=== PATIENT | female | born 1970 | race Caucasian/White ===

== ENCOUNTER 2017-10-22 21:11 | Emergency (ER) | payer MEDICAID ==
[~2017-10-22 21:11] MED LIST: ADV500/50 INH; ALBU8.5H12 IH; ALPR-429 PO; AMIT-104 PO; AMO875 PO; AUG875 PO; BEN100 PO; BO30S PR; CEF300 PO; CEP500 PO; CIP500 PO; CIPR-214 PO; CLI150 PO; CYC10 PO; DIAZ-1 PO; DIP5L PO; DOXY-179 PO; DOXY150T6 PO; FAM20 PO; FLUT16SP20 NS; FURO-43 PO; GOLYTE PO; GUALA600 PO; HYD2 PO; HYDEL PO; HYDR-319 PO; HYDR-385 PO; HYDR-4308 PO; HYDR2TAB42 PO; HYDR2TAB74 PO; IBU600 PO; IBU800 PO; LEV500 PO; LEVAQUIN; LEVO750T25 PO; LOR5 PO; LOR5/325 PO; META800T18 PO; METH4TAB57 PO; MORP-1 PO; NAP250 PO; OMEP-153 PO; OMEP40CA45 PO; ONDA4TAB PO; OXYB10TA21 PO; OXYC-827 PO; OXYGEN INH; PAN40 PO; PANT40TA65 PO; PAR20 PO; PARO-243 PO; PER PO; PHEN120S16 PO; PHENA200 PO; POLY17PO25 PO; POTA2.5T7 PO; PRE10 PO; PRE20 PO; PRO25 PO; PROAIRPT IH; PROC5L PO; PROM-110 PO; PROM25S PR; ROBC PO; SIMV-44 PO; STEROID INHALER; TAMS0.4C76 PO; TIZA4CAP3 PO; TRA50 PO; TRAZ-163 PO; TRAZ50 PO; [UNRECOGNIZED DRUG - CODE] PO; [UNRECOGNIZED DRUG - REMARK]
--- NOTE | 2017-10-22 21:19 | ER Report ---
History and Physical Time Seen By MD: 21:19 HPI/ROS CHIEF COMPLAINT: Migraine headache HISTORY OF PRESENT ILLNESS: 47-year-old female with a migraine headache for 7 days. She is a long history of migraines. They have become in frequency. She began taking a beta art for suppression. Patient's on chronic pain management. She's tried her OxyContin and oxycodone without relief. Patient notes severe nausea but no vomiting. Patient denies fever or stiff neck. Patient notes photophobia and nausea but no vomiting. Patient states his headache is typical for her. REVIEW OF SYSTEMS: Respiratory: No cough, no dyspnea. Cardiovascular: No chest pain, no palpitations. Gastrointestinal: No vomiting, no abdominal pain. Musculoskeletal: No back pain. Allergies: Coded Allergies: Sulfa (Sulfonamide Antibiotics) (Verified Allergy, Severe, ANAPHYLAXIS, ) cephalexin (Verified Allergy, Severe, ANAPHYLAXIS, 10/22/17) ciprofloxacin (Verified Allergy, Severe, SWELLING IN MOUTH, ITCHING, PIN AND NEEDLES IN MOUTH, 10/22/17) sulfamethoxazole (Verified Allergy, Severe, SWELLING OF LIPS AND GUMS, ) trimethoprim (Verified Allergy, Severe, SWELLING OF LIPS AND GUMS, 10/22/17 ) meperidine (Verified Allergy, Intermediate, RASH, ITCHING, 10/22/17) aspirin (Verified Allergy, Mild, 10/22/17) naproxen (Verified Allergy, Mild, 10/22/17) Home Meds Reported Medications Paroxetine Hcl (PAXIL) 20 Mg Tablet, 37.5 MG PO QDAY, TAB 10/22/17 Pantoprazole Sodium (PANTOPRAZOLE SODIUM) 40 Mg Tablet.dr, 40 MG PO QDAY, TAB.SR 02/16/17 Oxycodone Hcl (OXYCONTIN) 15 Mg Tab.er.12h, 20 MG PO QDAY 02/16/17 Hydrocodone Bit/Acetaminophen (NORCO 7.5-325 TABLET) 1 Each Tablet, 1 EACH PO 08/27/16 Polyethylene Glycol 3350 (MIRALAX) Unknown Strength Powd.pack, 17 GM PO QODAY, PKT 08/15/16 Discontinued Reported Medications Trazodone Hcl (TRAZODONE HCL) 100 Mg Tablet, 100 MG PO QHS, TAB 06/29/16 Paroxetine Hcl (PAXIL) 20 Mg Tablet, 75 MG PO QDAY, TAB 11/15/15 Reviewed Nurses Notes: Yes Old Medical Records Reviewed: Yes Hx Smoking: Yes (1/2 PPD 5 YEARS) Smoking Status: Current: Every Day Smoker Exposure to Second Hand Smoke?: Yes Hx Substance Use Disorder: No Hx Alcohol Use: No Constitutional Vital Sign - Last 24 Hours 10/22/17 10/22/17 10/22/17 10/22/17 21:18 21:26 21:30 21:41 Temp 97.8 Pulse 54 54 53 Resp 18 B/P (MAP) 143/91 116/83 (94) Pulse Ox 97 93 94 O2 Delivery Room Air 10/22/17 10/22/17 10/22/17 10/22/17 21:56 22:00 22:11 22:26 Pulse 54 53 50 B/P (MAP) 131/77 (95) Pulse Ox 93 97 97 10/22/17 10/22/17 10/22/17 10/22/17 22:30 22:41 22:56 23:00 Pulse 52 63 B/P (MAP) 107/67 (80) 100/57 (71) Pulse Ox 96 89 Physical Exam Vital signs stable, afebrile, pulse ox normal General Appearance: The patient is alert, has no immediate need for airway protection and no signs of toxicity. Moderate distress Eyes: Pupils equal and round no pallor or injection. + Photophobia ENT, Mouth: Mucous membranes are moist. TMs normal Respiratory: There are no retractions, lungs are clear to auscultation. Cardiovascular: Regular rate and rhythm. Gastrointestinal: Abdomen is soft and non tender, no masses, bowel sounds normal. Neurological: Alert and oriented 3, cranial nerves II through XII intact motor 5/5 air analyst, sensory intact to light touch 4, cerebellum grossly intact Skin: Warm and dry, no rashes. Musculoskeletal: Neck is supple non tender. No lymphadenopathy, no meningismus , no bruits Extremities are nontender, nonswollen and have full range of motion. DIFFERENTIAL DIAGNOSIS: After history and physical exam differential diagnosis was considered for headache including but not limited to subarachnoid hemorrhage , migraine headache, tension headache and infectious causes such as meningitis, pharyngitis and sinusitis. Medical Decision Making Data Points Result Diagram: 10/22/17215810/22/172158 Laboratory Hematology Test 10/22/17 21:59 Red Blood Count 4.59 M/uL (4.17-5.56) Mean Corpuscular Volume 93.4 fL (80.0-96.0) Mean Corpuscular Hemoglobin 31.7 pg (26.0-33.0) Mean Corpuscular Hemoglobin Concent 33.9 g/dL (32.0-36.0) Red Cell Distribution Width 13.6 % (11.5-14.5) Mean Platelet Volume 7.6 fL (7.2-11.1) Neutrophils (%) (Auto) 64.6 % (39.4-72.5) Lymphocytes (%) (Auto) 27.9 % (17.6-49.6) Monocytes (%) (Auto) 5.5 % (4.1-12.4) Eosinophils (%) (Auto) 0.9 % (0.4-6.7) Basophils (%) (Auto) 1.1 % (0.3-1.4) Nucleated RBC Relative Count (auto) 0.0 /100WBC Neutrophils # (Auto) 8.8 K/uL (2.0-7.4) Lymphocytes # (Auto) 3.8 K/uL (1.3-3.6) Monocytes # (Auto) 0.8 K/uL (0.3-1.0) Eosinophils # (Auto) 0.1 K/uL (0.0-0.5) Basophils # (Auto) 0.1 K/uL (0.0-0.1) Nucleated RBC Absolute Count (auto) 0.00 K/uL Erythrocyte Sedimentation Rate 18 mm/HOUR (0-20) Sodium Level 139 mmol/L (137-145) Potassium Level 3.7 mmol/L (3.5-5.0) Chloride Level 102 mmol/L (98-107) Carbon Dioxide Level 28 mmol/L (22-31) Blood Urea Nitrogen 13 mg/dl (7-18) Creatinine 0.90 mg/dl (0.52-1.04) Glomerular Filtration Rate Calc > 60.0 Random Glucose 77 mg/dl (75-110) Calcium Level 8.7 mg/dl (8.4-10.2) Total Bilirubin 0.4 mg/dl (0.2-1.3) Aspartate Amino Transf (AST/SGOT) 15 U/L (0-35) Alanine Aminotransferase (ALT/SGPT) 29 U/L (0-56) Alkaline Phosphatase 95 U/L (0-126) Total Protein 6.6 gm/dl (6.3-8.2) Albumin 3.5 g/dl (3.5-5.0) Chemistry Test 10/22/17 21:59 White Blood Count 13.7 k/uL (4.5-11.0) Red Blood Count 4.59 M/uL (4.17-5.56) Hemoglobin 14.5 g/dL (12.0-16.0) Hematocrit 42.9 % (34.0-47.0) Mean Corpuscular Volume 93.4 fL (80.0-96.0) Mean Corpuscular Hemoglobin 31.7 pg (26.0-33.0) Mean Corpuscular Hemoglobin Concent 33.9 g/dL (32.0-36.0) Red Cell Distribution Width 13.6 % (11.5-14.5) Platelet Count 231 K/uL (150-450) Mean Platelet Volume 7.6 fL (7.2-11.1) Neutrophils (%) (Auto) 64.6 % (39.4-72.5) Lymphocytes (%) (Auto) 27.9 % (17.6-49.6) Monocytes (%) (Auto) 5.5 % (4.1-12.4) Eosinophils (%) (Auto) 0.9 % (0.4-6.7) Basophils (%) (Auto) 1.1 % (0.3-1.4) Nucleated RBC Relative Count (auto) 0.0 /100WBC Neutrophils # (Auto) 8.8 K/uL (2.0-7.4) Lymphocytes # (Auto) 3.8 K/uL (1.3-3.6) Monocytes # (Auto) 0.8 K/uL (0.3-1.0) Eosinophils # (Auto) 0.1 K/uL (0.0-0.5) Basophils # (Auto) 0.1 K/uL (0.0-0.1) Nucleated RBC Absolute Count (auto) 0.00 K/uL Erythrocyte Sedimentation Rate 18 mm/HOUR (0-20) Glomerular Filtration Rate Calc > 60.0 Calcium Level 8.7 mg/dl (8.4-10.2) Total Bilirubin 0.4 mg/dl (0.2-1.3) Aspartate Amino Transf (AST/SGOT) 15 U/L (0-35) Alanine Aminotransferase (ALT/SGPT) 29 U/L (0-56) Alkaline Phosphatase 95 U/L (0-126) Total Protein 6.6 gm/dl (6.3-8.2) Albumin 3.5 g/dl (3.5-5.0) ED Course/Re-evaluation Clinical Indication for ER IV: Hydration, IV Access ED Course Patient was admitted to an examination room. H&P was done. The differential diagnoses was considered. On clinical examination. Patient has some findings consistent with a migraine headache. She has a nonfocal neurologic examination. She's treated with IV fluid hydration and a non-opiate cocktail of medications. On reevaluation one hour. She's feeling completely better with no headache. She'll be discharged home. 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 Decision to Disposition Date: Oct 22, 2017 Decision to Disposition Time: 22:58 Depart Departure Latest Vital Signs Vital Signs Date Time Temp Pulse Resp B/P (MAP) Pulse Ox O2 Delivery O2 Flow Rate FiO2 10/22/17 23:00 100/57 (71) 10/22/17 22:56 63 89 10/22/17 21:18 97.8 18 Room Air Impression: Primary Impression: Migraine headache Condition: Improved Disposition: HOME OR SELF-CARE Referrals: MARY LIZAMA DO (PCP) Patient Instructions: Migraine Headache (ED) Additional Instructions: Follow-up with your primary care if unimproved in 3-5 days Problem Qualifiers Primary Impression: Migraine headache Migraine type: chronic without aura Status migrainosus presence: with status migrainosus Intractability: intractable Qualified Codes: G43.711 - Chronic migraine without aura, intractable, with status migrainosus FABY JOY DO Oct 22, 2017 21:19
[2017-10-22] MEDS ORDERED: PARO-243 PO (21:25)
[2017-10-22] MEDS ORDERED: NS(*) 0.9% 1000 ML BAG 1,000 ML IV ONE (21:31)
[2017-10-22] MEDS ORDERED: diphenhydrAMINE 50 MG/ML VIAL IVP ONE (21:35)
[2017-10-22] MEDS ORDERED: ONDANSETRON 4 MG/2 ML VIAL IVP ONE (21:35)
[2017-10-22] MEDS ORDERED: KETOROLAC 30 MG/ML VIAL IVP ONE (21:35)
[2017-10-22] MEDS ORDERED: METOCLOPRAMIDE 10 MG/2 ML SDV IVP ONE (21:35)
[2017-10-22] MEDS ORDERED: DEXAMETHASONE SOD PHOS 10MG/ML IVP ONE (21:35)
[2017-10-22 22:04] LABS: PLATELET COUNT, AUTOMATED 231 K/uL (150-450)
[2017-10-22 23:00] VITALS: BP 100/57
== END 2017-10-22 23:11 | disposition home or self-care (01) ==
LOC: ER 21:37
DX: G43.711 Chronic migraine without aura, intractable, with status migrainosus (principal); F17.210 Nicotine dependence, cigarettes, uncomplicated
CPT/HCPCS: 85025; 85651; 96361; 96374; 96375; 99283; J1100; J1200; J1885; J2405; J2765; J7030; 82040; 82247; 82310; 82374; 82435; 82565; 82947; 84075; 84132; 84155; 84295; 84450; 84460; 84520

== ENCOUNTER 2017-12-01 20:13 | Emergency (ER) | payer MEDICAID ==
--- NOTE | 2017-12-01 20:31 | ER Report ---
History and Physical Time Seen By MD: 20:31 Hx. of Stated Complaint: PT REPORTING ABDOMINAL PAIN FOR A WEEK. HPI/ROS CHIEF COMPLAINT: Abdominal pain HISTORY OF PRESENT ILLNESS: Patient is a 47-year-old female who presents to the emergency department with complaint of abdominal pain that is progressively getting worse over the past week. Patient states that the pain initially began in the right flank area radiating around to the front but now has become more generalized and is worse with movement. Patient does have a history of kidney stones in the past but states that the pain felt different than her prior kidney stones. She is nauseous and having some vomiting she denies diarrhea. She reports fevers to 100 at home. Her appetite is decreased secondary to the pain as well as the nausea. Patient has had her gallbladder removed her appendix removed and her uterus removed. REVIEW OF SYSTEMS: Constitutional: Fevers, no chills Eyes: No discharge. ENT: No sore throat. Cardiovascular: No chest pain, no palpitations. Respiratory: No cough, no shortness of breath. Gastrointestinal: Periumbilical abdominal pain, nausea, vomiting, no diarrhea Genitourinary: No hematuria. Musculoskeletal: No back pain. Skin: No rashes. Neurological: No headache. Allergies: Coded Allergies: Sulfa (Sulfonamide Antibiotics) (Verified Allergy, Severe, ANAPHYLAXIS, ) cephalexin (Verified Allergy, Severe, ANAPHYLAXIS, 10/22/17) ciprofloxacin (Verified Allergy, Severe, SWELLING IN MOUTH, ITCHING, PIN AND NEEDLES IN MOUTH, 10/22/17) sulfamethoxazole (Verified Allergy, Severe, SWELLING OF LIPS AND GUMS, ) trimethoprim (Verified Allergy, Severe, SWELLING OF LIPS AND GUMS, 10/22/17 ) meperidine (Verified Allergy, Intermediate, RASH, ITCHING, 10/22/17) aspirin (Verified Allergy, Mild, 10/22/17) naproxen (Verified Allergy, Mild, 10/22/17) dexamethasone (Verified Allergy, Unknown, 12/01/17) Home Meds Active Scripts Ondansetron (ZOFRAN ODT) 4 Mg Tab.rapdis, 4 MG PO Q8H Y for NAUSEA, #20 TAB.JIMMIE 0 Refills Prov:JUANA MORROW MD 12/01/17 Dicyclomine Hcl (DICYCLOMINE HCL) 20 Mg Tablet, 20 MG PO QID for abdominal cramping, #30 TAB Prov:JUANA MORROW MD 12/01/17 Reported Medications Lubiprostone (AMITIZA) 8 Mcg Capsule 12/01/17 Paroxetine Hcl (PAXIL) 20 Mg Tablet, 75 MG PO QDAY, TAB 12/01/17 Paroxetine Hcl (PAXIL) 20 Mg Tablet, 37.5 MG PO QDAY, TAB 10/22/17 Pantoprazole Sodium (PANTOPRAZOLE SODIUM) 40 Mg Tablet.dr, 40 MG PO QDAY, TAB.SR 02/16/17 Oxycodone Hcl (OXYCONTIN) 15 Mg Tab.er.12h, 20 MG PO QDAY 02/16/17 Hydrocodone Bit/Acetaminophen (NORCO 7.5-325 TABLET) 1 Each Tablet, 1 EACH PO 08/27/16 Polyethylene Glycol 3350 (MIRALAX) Unknown Strength Powd.pack, 17 GM PO QODAY, PKT 08/15/16 Past Medical/Surgical History Past medical history significant for constipation, depression, kidney stones Hx Smoking: Yes (1/2 PPD 5 YEARS) Smoking Status: Current: Every Day Smoker Exposure to Second Hand Smoke?: Yes Hx Substance Use Disorder: No Hx Alcohol Use: No Constitutional Vital Sign - Last 24 Hours 12/01/17 12/01/17 12/01/17 12/01/17 20:24 20:25 20:43 20:53 Temp 99.0 Pulse 55 57 Resp 16 B/P (MAP) 151/89 (109) 151/89 121/79 (93) Pulse Ox 95 98 O2 Delivery Room Air 12/01/17 12/01/17 12/01/17 12/01/17 20:58 21:00 21:13 21:28 Pulse 60 63 B/P (MAP) 119/93 (102) Pulse Ox 94 96 91 12/01/17 12/01/17 12/01/17 12/01/17 21:30 21:35 21:41 22:06 Pulse 52 B/P (MAP) 123/70 (87) 125/85 (98) Pulse Ox 89 O2 Flow Rate 1.0 12/01/17 12/01/17 12/01/17 12/01/17 22:20 22:30 22:43 23:00 Pulse 51 49 B/P (MAP) 125/75 (92) 107/64 (78) Pulse Ox 99 12/01/17 23:18 Pulse 52 Resp 16 B/P (MAP) 108/69 (82) Pulse Ox 93 O2 Delivery Room Air Physical Exam General/Constitutional: Patient is awake, alert, appears uncomfortable but nontoxic. Head: Normocephalic and atraumatic. Eyes: Conjunctival clear, Pupils are equal and reactive to light. Extraocular muscles are intact and symmetrical. Sclera are clear and anicteric. Ears:External canals are clear. Tympanic membranes are clear with normal landmarks and light reflex. Nares: No rhinorrhea or bleeding. Turbinates are pink and moist. Oropharyngeal: Mucous membranes are moist. There is no pharyngeal erythema or exudate. There are no palatal petechiae. Uvula is midline and symmetrical. Neck: Supple, no adenopathy. Cardiovascular: Heart is regular rate and rhythm without audible murmurs, rubs or gallops. Pulmonary: Lungs are clear to auscultation bilaterally. There are no wheezes, rales, or rhonchi. Chest rise is symmetrical Abdomen: Epigastric abdominal pain with voluntary guarding, no obvious rebound tenderness. Extremities: No gross deformities, No peripheral cyanosis. Able to move all 4 extremities. Neuro: Alert and oriented X3, Skin: No rashes, skin is warm dry and well perfused. Medical Decision Making Data Points Result Diagram: 12/01/17203312/01/172033 Laboratory Hematology Test 12/01/17 20:34 Red Blood Count 4.99 M/uL (4.17-5.56) Mean Corpuscular Volume 92.4 fL (80.0-96.0) Mean Corpuscular Hemoglobin 32.7 pg (26.0-33.0) Mean Corpuscular Hemoglobin Concent 35.4 g/dL (32.0-36.0) Red Cell Distribution Width 13.6 % (11.5-14.5) Mean Platelet Volume 8.2 fL (7.2-11.1) Neutrophils (%) (Auto) 53.0 % (39.4-72.5) Lymphocytes (%) (Auto) 39.3 % (17.6-49.6) Monocytes (%) (Auto) 5.3 % (4.1-12.4) Eosinophils (%) (Auto) 1.3 % (0.4-6.7) Basophils (%) (Auto) 1.1 % (0.3-1.4) Nucleated RBC Relative Count (auto) 0.0 /100WBC Neutrophils # (Auto) 5.6 K/uL (2.0-7.4) Lymphocytes # (Auto) 4.1 K/uL (1.3-3.6) Monocytes # (Auto) 0.6 K/uL (0.3-1.0) Eosinophils # (Auto) 0.1 K/uL (0.0-0.5) Basophils # (Auto) 0.1 K/uL (0.0-0.1) Nucleated RBC Absolute Count (auto) 0.00 K/uL Urine Color Yellow Urine Clarity Slightly-cloudy Urine pH 7.0 pH (4.8-9.5) Urine Specific Bogart 1.019 Urine Protein Negative mg/dL (NEGATIVE) Urine Glucose (UA) Negative mg/dL (NEGATIVE) Urine Ketones Negative mg/dL (NEGATIVE) Urine Blood Negative (NEGATIVE) Urine Nitrite Negative (NEGATIVE) Urine Bilirubin Negative (NEGATIVE) Urine Urobilinogen 2.0 mg/dL (0.2-1.9) Urine Leukocyte Esterase Negative (NEGATIVE) Urine RBC None /HPF (0-2/HPF) Urine WBC 2 /HPF (0-5/HPF) Urine Squamous Epithelial Cells Many /LPF (</=FEW) Urine Bacteria Few /HPF (NONE-FEW) Urine Hyaline Casts Few /LPF (NONE-FEW) Urine Mucus None /HPF (NONE-FEW) Sodium Level 139 mmol/L (137-145) Potassium Level 3.9 mmol/L (3.5-5.0) Chloride Level 100 mmol/L (98-107) Carbon Dioxide Level 27 mmol/L (22-31) Blood Urea Nitrogen 7 mg/dl (7-18) Creatinine 0.80 mg/dl (0.52-1.04) Glomerular Filtration Rate Calc > 60.0 Random Glucose 89 mg/dl (75-110) Calcium Level 9.0 mg/dl (8.4-10.2) Total Bilirubin 0.3 mg/dl (0.2-1.3) Aspartate Amino Transf (AST/SGOT) 17 U/L (0-35) Alanine Aminotransferase (ALT/SGPT) 26 U/L (0-56) Alkaline Phosphatase 110 U/L (0-126) Total Protein 7.6 gm/dl (6.3-8.2) Albumin 4.0 g/dl (3.5-5.0) Lipase 37 U/L (23-300) Human Chorionic Gonadotropin, Qual Negative (NEGATIVE) Helicobacter pylori IgG Antibody Negative (NEGATIVE) Chemistry Test 12/01/17 20:34 White Blood Count 10.5 k/uL (4.5-11.0) Red Blood Count 4.99 M/uL (4.17-5.56) Hemoglobin 16.3 g/dL (12.0-16.0) Hematocrit 46.1 % (34.0-47.0) Mean Corpuscular Volume 92.4 fL (80.0-96.0) Mean Corpuscular Hemoglobin 32.7 pg (26.0-33.0) Mean Corpuscular Hemoglobin Concent 35.4 g/dL (32.0-36.0) Red Cell Distribution Width 13.6 % (11.5-14.5) Platelet Count 267 K/uL (150-450) Mean Platelet Volume 8.2 fL (7.2-11.1) Neutrophils (%) (Auto) 53.0 % (39.4-72.5) Lymphocytes (%) (Auto) 39.3 % (17.6-49.6) Monocytes (%) (Auto) 5.3 % (4.1-12.4) Eosinophils (%) (Auto) 1.3 % (0.4-6.7) Basophils (%) (Auto) 1.1 % (0.3-1.4) Nucleated RBC Relative Count (auto) 0.0 /100WBC Neutrophils # (Auto) 5.6 K/uL (2.0-7.4) Lymphocytes # (Auto) 4.1 K/uL (1.3-3.6) Monocytes # (Auto) 0.6 K/uL (0.3-1.0) Eosinophils # (Auto) 0.1 K/uL (0.0-0.5) Basophils # (Auto) 0.1 K/uL (0.0-0.1) Nucleated RBC Absolute Count (auto) 0.00 K/uL Urine Color Yellow Urine Clarity Slightly-cloudy Urine pH 7.0 pH (4.8-9.5) Urine Specific Bogart 1.019 Urine Protein Negative mg/dL (NEGATIVE) Urine Glucose (UA) Negative mg/dL (NEGATIVE) Urine Ketones Negative mg/dL (NEGATIVE) Urine Blood Negative (NEGATIVE) Urine Nitrite Negative (NEGATIVE) Urine Bilirubin Negative (NEGATIVE) Urine Urobilinogen 2.0 mg/dL (0.2-1.9) Urine Leukocyte Esterase Negative (NEGATIVE) Urine RBC None /HPF (0-2/HPF) Urine WBC 2 /HPF (0-5/HPF) Urine Squamous Epithelial Cells Many /LPF (</=FEW) Urine Bacteria Few /HPF (NONE-FEW) Urine Hyaline Casts Few /LPF (NONE-FEW) Urine Mucus None /HPF (NONE-FEW) Glomerular Filtration Rate Calc > 60.0 Calcium Level 9.0 mg/dl (8.4-10.2) Total Bilirubin 0.3 mg/dl (0.2-1.3) Aspartate Amino Transf (AST/SGOT) 17 U/L (0-35) Alanine Aminotransferase (ALT/SGPT) 26 U/L (0-56) Alkaline Phosphatase 110 U/L (0-126) Total Protein 7.6 gm/dl (6.3-8.2) Albumin 4.0 g/dl (3.5-5.0) Lipase 37 U/L (23-300) Human Chorionic Gonadotropin, Qual Negative (NEGATIVE) Helicobacter pylori IgG Antibody Negative (NEGATIVE) Urinalysis Test 12/01/17 20:34 Urine Color Yellow Urine Clarity Slightly-cloudy Urine pH 7.0 pH (4.8-9.5) Urine Specific Bogart 1.019 Urine Protein Negative mg/dL (NEGATIVE) Urine Glucose (UA) Negative mg/dL (NEGATIVE) Urine Ketones Negative mg/dL (NEGATIVE) Urine Blood Negative (NEGATIVE) Urine Nitrite Negative (NEGATIVE) Urine Bilirubin Negative (NEGATIVE) Urine Urobilinogen 2.0 mg/dL (0.2-1.9) Urine Leukocyte Esterase Negative (NEGATIVE) Urine RBC None /HPF (0-2/HPF) Urine WBC 2 /HPF (0-5/HPF) Urine Squamous Epithelial Cells Many /LPF (</=FEW) Urine Bacteria Few /HPF (NONE-FEW) Urine Hyaline Casts Few /LPF (NONE-FEW) Urine Mucus None /HPF (NONE-FEW) EKG/Imaging Monitor Interpretation: Normal Sinus Rhythm Imaging FACILITY: [facility] [place] PATIENT NAME: Jacinto Santana : 1970 MR: [id number] V: [id number] EXAM DATE: ORDERING PHYSICIAN: JUANA MORROW TECHNOLOGIST: [place] [facility] [place]into [place] : 1970 Visit/Account:[id number] Date of Sevice: 12/01/2017 CT abdomen and pelvis with IV contrast Indication: Central abdominal pain and right flank pain. Comparison: 12/28/2016.. Technique: Axial CT images were obtained through the abdomen and pelvis during injection of nonionic iodinated intravenous contrast. Reformatted coronal and sagittal images were also obtained. One of the following dose optimization techniques was utilized in the performance of this exam: Automated exposure control; adjustment of the mA and/ or kV according to the patient's size; or use of an iterative reconstruction technique. Specific details can be referenced in the facility's radiology CT exam operational policy. Contrast: 75 ml of Isovue-370 IV contrast. Findings: Lower lung larios: Limited views lower lung field are unremarkable. Liver: There is focal area of mild increased attenuation in the gallbladder fossa region left lobe liver which is unchanged most likely secondary to focal fatty sparing liver shows no other focal abnormality. Biliary: Status post cholecystectomy. The biliary system is unremarkable postcholecystectomy. Pancreas: Normal appearance. Spleen: Normal appearance. Adrenal glands: Unremarkable. Kidneys / retroperitoneum: No evidence of nephrolithiasis or hydronephrosis. No focal abnormality. Bowel / peritoneum / mesenteries: Visualized gastrointestinal tract is within normal is. Status post appendectomy. No free air, free fluid, fluid collections or areas of inflammation. Tiny umbilical hernia containing fat. Lymph node assessment: No pathologic adenopathy identified. Pelvic structures: Status post hysterectomy. The remaining pelvic structures visualized within normal limits. Vessels: No significant atherosclerotic calcifications seen throughout a nonaneurysmal abdominal aorta and branches. Musculoskeletal / Body wall: No acute or aggressive osseous abnormality. Degenerative changes spine. Postsurgical change the lower lumbar spine without sequelae. Neural stimulating leads are in place in the spinal canal. IMPRESSION: 1. No acute intra-abdominal abnormality 2. Other stable chronic findings as above. Report Dictated By: Cristian Ortiz at 12/01/2017 10:11 PM Report E-Signed By: Cristian Ortiz at 12/01/2017 10:18 PM WSN:[id number] ED Course/Re-evaluation ED Course 12/01/2017 9:17:34 pm patient with abdominal pain. We will do abdominal workup including CBC CMP lipase EKG we will also obtain a CT scan of the abdomen and pelvis with IV contrast. We will give a fluid bolus along with antiemetic medicine IV as well as fentanyl IV for pain Re-evaluation 12/01/2017 10:39:06 pm patient still having discomfort despite fentanyl followed by So. She did receive some IV fluids nausea somewhat improved. CT scan blood work are all unremarkable. Looking at our treatment plan apparently the patient does have a history of narcotic seeking behavior, I did look up the [place] prescription and patient was recently given on November 26 45; 20 mg strength OxyContin. On November 17 she was prescribed 30 tablets of 5 mg Ambien, on the same date she was given 60 tablets of 10 mg hydrocodone tablets; on November 15 she was given 12 tablets of 20 mg OxyContin; and on November 13 she was given 16 tablets of 10 mg hydrocodone. These are all from the same provider. Believe patient most likely has opioid-induced hyperalgesia; this time I will give the patient 5 mg of IV Haldol. We will discharge the patient on Bentyl and Zofran and have her follow-up with her primary care provider. 12/01/2017 11:04:20 pm patient feeling improved after 5 mg of IV Haldol. We will discharge home with prescription for Bentyl and Zofran. Decision to Disposition Date: Dec 01, 2017 Decision to Disposition Time: 23:04 Depart Departure Latest Vital Signs Vital Signs Date Time Temp Pulse Resp B/P (MAP) Pulse Ox O2 Delivery O2 Flow Rate FiO2 12/01/17 23:18 52 16 108/69 (82) 93 Room Air 12/01/17 21:41 1.0 12/01/17 20:25 99.0 Impression: Primary Impression: Generalized abdominal pain Condition: Improved Disposition: HOME OR SELF-CARE Referrals: MARY LIZAMA DO (PCP) 2 Days if symptoms persist New Scripts Ondansetron (ZOFRAN ODT) 4 Mg Tab.rapdis 4 MG PO Q8H Y for NAUSEA, #20 TAB.JIMMIE 0 Refills Prov: JUANA MORROW MD 12/01/17 Dicyclomine Hcl (DICYCLOMINE HCL) 20 Mg Tablet 20 MG PO QID for abdominal cramping, #30 TAB Prov: JUANA MORROW MD 12/01/17 Patient Instructions: Abdominal Pain (ED) JUANA MORROW MD Dec 01, 2017 20:31
[2017-12-01] MEDS ORDERED: PARO-243 PO (20:32)
[2017-12-01] MEDS ORDERED: LUBI8CAP (20:32)
[2017-12-01] MEDS ORDERED: NS(*) 0.9% 1000 ML BAG 1,000 ML IV ONE (20:38)
[2017-12-01] MEDS ORDERED: ONDANSETRON 4 MG/2 ML VIAL IVP ONE (20:40)
[2017-12-01] MEDS ORDERED: fentaNYL CITR 100 MCG/2 ML AMP IVP ONE (20:40)
[2017-12-01 20:50] LABS: PLATELET COUNT, AUTOMATED 267 K/uL (150-450)
[2017-12-01] MEDS ORDERED: IOPAMIDOL 76% 75 ML INFUS BTL 75 ML ONE (20:50)
[2017-12-01] MEDS ORDERED: HYDROmorphone* 1 MG/ML 1 MG/ML ML IVP ONE (21:10)
[2017-12-01] MEDS ORDERED: HALOPERIDOL LACT 5 MG/ML VIAL IM ONE (22:20)
--- NOTE | 2017-12-01 22:21 | RADIOLOGY IMAGING REPORT ---
FACILITY: [facility] - [place] PATIENT NAME: Jacinto Santana : 1970 MR: [id number] V: [id number] EXAM DATE: ORDERING PHYSICIAN: JUANA MORROW TECHNOLOGIST: Location: [facility] - [place] Patient: Jacinto Santana : 1970 Visit/Account:[id number] Date of Sevice: 12/01/2017 CT abdomen and pelvis with IV contrast Indication: Central abdominal pain and right flank pain. Comparison: 12/28/2016.. Technique: Axial CT images were obtained through the abdomen and pelvis during injection of nonioni c iodinated intravenous contrast. Reformatted coronal and sagittal images were also obtained. One of the following dose optimization techniques was utilized in the performance of this exam: Autom ated exposure control; adjustment of the mA and/or kV according to the patient's size; or use of an i terative reconstruction technique. Specific details can be referenced in the facility's radiology C T exam operational policy. Contrast: 75 ml of Isovue-370 IV contrast. Findings: Lower lung larios: Limited views lower lung field are unremarkable. Liver: There is focal area of mild increased attenuation in the gallbladder fossa region left lobe li manolo which is unchanged most likely secondary to focal fatty sparing liver shows no other focal abnorm ality. Biliary: Status post cholecystectomy. The biliary system is unremarkable postcholecystectomy. Pancreas: Normal appearance. Spleen: Normal appearance. Adrenal glands: Unremarkable. Kidneys / retroperitoneum: No evidence of nephrolithiasis or hydronephrosis. No focal abnormality. Bowel / peritoneum / mesenteries: Visualized gastrointestinal tract is within normal is. Status post appendectomy. No free air, free fluid, fluid collections or areas of inflammation. Tiny umbilical hernia containing fat. Lymph node assessment: No pathologic adenopathy identified. Pelvic structures: Status post hysterectomy. The remaining pelvic structures visualized within nor mal limits. Vessels: No significant atherosclerotic calcifications seen throughout a nonaneurysmal abdominal aort a and branches. Musculoskeletal / Body wall: No acute or aggressive osseous abnormality. Degenerative changes spine. Postsurgical change the lower lumbar spine without sequelae. Neural stimulating leads are in place in the spinal canal. IMPRESSION: 1. No acute intra-abdominal abnormality 2. Other stable chronic findings as above. Report Dictated By: Cristian Ortiz at 12/01/2017 10:11 PM Report E-Signed By: Cristian Ortiz at 12/01/2017 10:18 PM WSN:[id number]
[2017-12-01] MEDS ORDERED: DICY20TA70 PO (22:44)
[2017-12-01] MEDS ORDERED: ONDA4TAB PO (22:44)
[2017-12-01] MEDS ORDERED: DICYCLOMINE HCL 10 MG CAP PO ONE (23:05)
[2017-12-01] MEDS ORDERED: ONDANSETRON 4 MG ODT TH SL ONE (23:05)
[2017-12-01 23:18] VITALS: BP 108/69
--- NOTE | 2017-12-02 01:35 | EKG ---
FACILITY: [facility] - [place] PATIENT NAME: DELMY CARSON : [id number] MR: [id number] V: [id number] EXAM DATE: ORDERING PHYSICIAN: JUANA MORROW TECHNOLOGIST: MARTIN Test Reason : AB PAIN Blood Pressure : / mmHG Vent. Rate : 057 BPM Atrial Rate : 057 BPM P-R Int : 144 ms QRS Dur : 082 ms QT Int : 450 ms P-R-T Axes : 025 047 037 degrees QTc Int : 438 ms Sinus bradycardia Possible left atrial enlargement Decreased R wave progression anterior leads Nonspecific T wave findings anterior leads No previous ECGs available Confirmed by JACOBO MORIN ([id number]) on 12/02/2017 5:48:52 AM Referred By: Confirmed By:JACOBO MORIN
== END 2017-12-01 23:16 | disposition home or self-care (01) ==
LOC: ER 20:32
DX: R10.84 Generalized abdominal pain (principal); R00.1 Bradycardia, unspecified
CPT/HCPCS: 74177; 81001; 83690; 84703; 85025; 86677; 87088; 93005; 96361; 96372; 96374; 96375; 99284; J1170; J1630; J2405; J3010; J7030; Q9967; S0119; 82040; 82247; 82310; 82374; 82435; 82565; 82947; 84075; 84132; 84155; 84295; 84450; 84460; 84520

== ENCOUNTER 2018-03-01 12:35 | Emergency (ER) | payer MEDICAID ==
[~2018-03-01 12:35] MED LIST changes: +DICY20TA70 PO; +LUBI8CAP
--- NOTE | 2018-03-01 12:42 | ER Report ---
History and Physical Time Seen By MD: 12:41 HPI/ROS CHIEF COMPLAINT: right flank pain HISTORY OF PRESENT ILLNESS: Patient is a 48-year-old female who presents to the emergency department with complaint of sudden onset of severe right flank pain with radiation to the groin similar to her prior episodes of kidney stone. She' s had multiple episodes of emesis prior to coming to the emergency department. Her current pain level is severe. She states that she thinks she passed a small stone on Thursday which she did not seek medical evaluation for. She apparently called the office of Dr. Gauthier who was not in the office and she was instructed by staff to come to the emergency department if she was having severe pain. Patient denies any fevers or chills she denies any dysuria. She denies any chest pain or shortness of breath. The patient does have a pain treatment plan with the emergency department. The electronic medical record was reviewed for this patient. She was seen here in November by myself for abdominal pain without obvious source. She did receive 5 mg of IV Haldol for opiate-induced hypalgesia which did seem to control her symptoms were quite well. The [place] pharmacy index was searched. The patient did receive 120 tablets 7.5 hydrocodone on February 25 60 tablets of 30 mg oxycodone on February 11 and 30 tablets of 1 mg strength Lunesta on February 25 REVIEW OF SYSTEMS: Constitutional: No fever, no chills. Eyes: No discharge. ENT: No sore throat. Cardiovascular: No chest pain, no palpitations. Respiratory: No cough, no shortness of breath. Gastrointestinal: Right flank pain, nausea with vomiting. No diarrhea Genitourinary: No hematuria. No dysuria no vaginal discharge Musculoskeletal: No back pain. Skin: No rashes. Neurological: No headache. Allergies: Coded Allergies: Sulfa (Sulfonamide Antibiotics) (Verified Allergy, Severe, ANAPHYLAXIS, ) cephalexin (Verified Allergy, Severe, ANAPHYLAXIS, 10/22/17) ciprofloxacin (Verified Allergy, Severe, SWELLING IN MOUTH, ITCHING, PIN AND NEEDLES IN MOUTH, 10/22/17) sulfamethoxazole (Verified Allergy, Severe, SWELLING OF LIPS AND GUMS, ) trimethoprim (Verified Allergy, Severe, SWELLING OF LIPS AND GUMS, 10/22/17 ) meperidine (Verified Allergy, Intermediate, RASH, ITCHING, 10/22/17) aspirin (Verified Allergy, Mild, 10/22/17) naproxen (Verified Allergy, Mild, 10/22/17) dexamethasone (Verified Allergy, Unknown, 12/01/17) Home Meds Active Scripts Ondansetron (ZOFRAN ODT) 4 Mg Tab.rapdis, 4 MG PO Q8H Y for NAUSEA, #20 TAB.JIMMIE 0 Refills Prov:JUANA MORROW MD 12/01/17 Reported Medications Lubiprostone (AMITIZA) 8 Mcg Capsule 12/01/17 Paroxetine Hcl (PAXIL) 20 Mg Tablet, 75 MG PO QDAY, TAB 12/01/17 Pantoprazole Sodium (PANTOPRAZOLE SODIUM) 40 Mg Tablet.dr, 40 MG PO QDAY, TAB.SR 02/16/17 Oxycodone Hcl (OXYCONTIN) 15 Mg Tab.er.12h, 20 MG PO QDAY 02/16/17 Hydrocodone Bit/Acetaminophen (NORCO 7.5-325 TABLET) 1 Each Tablet, 1 EACH PO 08/27/16 Polyethylene Glycol 3350 (MIRALAX) Unknown Strength Powd.pack, 17 GM PO QODAY, PKT 08/15/16 Discontinued Reported Medications Paroxetine Hcl (PAXIL) 20 Mg Tablet, 37.5 MG PO QDAY, TAB 10/22/17 Discontinued Scripts Dicyclomine Hcl (DICYCLOMINE HCL) 20 Mg Tablet, 20 MG PO QID for abdominal cramping, #30 TAB Prov:JUANA MORROW MD 12/01/17 Hx Smoking: Yes (1/2 PPD 5 YEARS) Smoking Status: Current: Every Day Smoker Exposure to Second Hand Smoke?: Yes Hx Substance Use Disorder: No Hx Alcohol Use: No Constitutional Vital Sign - Last 24 Hours 03/01/18 13:23 Temp 98.1 Pulse 59 Resp 18 B/P (MAP) 139/94 Pulse Ox 97 O2 Delivery Room Air Physical Exam General Appearance: [The patient is alert, has no immediate need for airway protection and no signs of toxicity.] [ ] [Eyes:] [Pupils equal and round no pallor or injection.] [ENT, Mouth:] [Mucous membranes are moist.] Respiratory: [There are no retractions, lungs are clear to auscultation.] Cardiovascular: [Regular rate and rhythm.] [ ] Gastrointestinal: [Abdomen is soft and non tender, no masses, bowel sounds normal.] [Neurological:] [ ] [Skin:] [Warm and dry, no rashes.] [Musculoskeletal:] [Neck is supple non tender.] [Extremities are nontender, nonswollen and have full range of motion.] [ ] [DIFFERENTIAL DIAGNOSIS: After history and physical exam differential diagnosis was considered for] [ ] Medical Decision Making Data Points Result Diagram: 03/01/18 1347 03/01/18 1347 Laboratory Hematology Test 03/01/18 13:36 03/01/18 13:47 Urine Color Yellow Urine Clarity Clear Urine pH 5.0 pH (4.8-9.5) Urine Specific [place] 1.020 Urine Protein Negative mg/dL (NEGATIVE) Urine Glucose (UA) Negative mg/dL (NEGATIVE) Urine Ketones Negative mg/dL (NEGATIVE) Urine Blood Small (NEGATIVE) Urine Nitrite Negative (NEGATIVE) Urine Bilirubin Negative (NEGATIVE) Urine Urobilinogen 2.0 mg/dL (0.2-1.9) Urine Leukocyte Esterase Negative (NEGATIVE) Urine RBC 2 /HPF (0-2/HPF) Urine WBC 1 /HPF (0-5/HPF) Urine Squamous Epithelial Cells Many /LPF (</=FEW) Urine Bacteria Negative /HPF (NONE-FEW) Urine Mucus Few /HPF (NONE-FEW) Red Blood Count 4.82 M/uL (4.17-5.56) Mean Corpuscular Volume 92.1 fL (80.0-96.0) Mean Corpuscular Hemoglobin 32.1 pg (26.0-33.0) Mean Corpuscular Hemoglobin Concent 34.9 g/dL (32.0-36.0) Red Cell Distribution Width 13.5 % (11.5-14.5) Mean Platelet Volume 8.2 fL (7.2-11.1) Neutrophils (%) (Auto) 60.8 % (39.4-72.5) Lymphocytes (%) (Auto) 31.8 % (17.6-49.6) Monocytes (%) (Auto) 5.3 % (4.1-12.4) Eosinophils (%) (Auto) 1.1 % (0.4-6.7) Basophils (%) (Auto) 1.0 % (0.3-1.4) Nucleated RBC Relative Count (auto) 0.0 /100WBC Neutrophils # (Auto) 7.0 K/uL (2.0-7.4) Lymphocytes # (Auto) 3.7 K/uL (1.3-3.6) Monocytes # (Auto) 0.6 K/uL (0.3-1.0) Eosinophils # (Auto) 0.1 K/uL (0.0-0.5) Basophils # (Auto) 0.1 K/uL (0.0-0.1) Nucleated RBC Absolute Count (auto) 0.00 K/uL Sodium Level 141 mmol/L (137-145) Potassium Level 3.8 mmol/L (3.5-5.0) Chloride Level 104 mmol/L (98-107) Carbon Dioxide Level 30 mmol/L (22-31) Blood Urea Nitrogen 10 mg/dl (7-18) Creatinine 0.80 mg/dl (0.52-1.04) Glomerular Filtration Rate Calc > 60.0 Random Glucose 79 mg/dl (75-110) Calcium Level 8.9 mg/dl (8.4-10.2) Total Bilirubin 0.4 mg/dl (0.2-1.3) Aspartate Amino Transf (AST/SGOT) 20 U/L (0-35) Alanine Aminotransferase (ALT/SGPT) 19 U/L (0-56) Alkaline Phosphatase 102 U/L (0-126) Total Protein 7.1 g/dl (6.3-8.2) Albumin 3.8 g/dl (3.5-5.0) Lipase 37 U/L (23-300) Chemistry Test 03/01/18 13:36 03/01/18 13:47 Urine Color Yellow Urine Clarity Clear Urine pH 5.0 pH (4.8-9.5) Urine Specific [place] 1.020 Urine Protein Negative mg/dL (NEGATIVE) Urine Glucose (UA) Negative mg/dL (NEGATIVE) Urine Ketones Negative mg/dL (NEGATIVE) Urine Blood Small (NEGATIVE) Urine Nitrite Negative (NEGATIVE) Urine Bilirubin Negative (NEGATIVE) Urine Urobilinogen 2.0 mg/dL (0.2-1.9) Urine Leukocyte Esterase Negative (NEGATIVE) Urine RBC 2 /HPF (0-2/HPF) Urine WBC 1 /HPF (0-5/HPF) Urine Squamous Epithelial Cells Many /LPF (</=FEW) Urine Bacteria Negative /HPF (NONE-FEW) Urine Mucus Few /HPF (NONE-FEW) White Blood Count 11.5 k/uL (4.5-11.0) Red Blood Count 4.82 M/uL (4.17-5.56) Hemoglobin 15.5 g/dL (12.0-16.0) Hematocrit 44.4 % (34.0-47.0) Mean Corpuscular Volume 92.1 fL (80.0-96.0) Mean Corpuscular Hemoglobin 32.1 pg (26.0-33.0) Mean Corpuscular Hemoglobin Concent 34.9 g/dL (32.0-36.0) Red Cell Distribution Width 13.5 % (11.5-14.5) Platelet Count 245 K/uL (150-450) Mean Platelet Volume 8.2 fL (7.2-11.1) Neutrophils (%) (Auto) 60.8 % (39.4-72.5) Lymphocytes (%) (Auto) 31.8 % (17.6-49.6) Monocytes (%) (Auto) 5.3 % (4.1-12.4) Eosinophils (%) (Auto) 1.1 % (0.4-6.7) Basophils (%) (Auto) 1.0 % (0.3-1.4) Nucleated RBC Relative Count (auto) 0.0 /100WBC Neutrophils # (Auto) 7.0 K/uL (2.0-7.4) Lymphocytes # (Auto) 3.7 K/uL (1.3-3.6) Monocytes # (Auto) 0.6 K/uL (0.3-1.0) Eosinophils # (Auto) 0.1 K/uL (0.0-0.5) Basophils # (Auto) 0.1 K/uL (0.0-0.1) Nucleated RBC Absolute Count (auto) 0.00 K/uL Glomerular Filtration Rate Calc > 60.0 Calcium Level 8.9 mg/dl (8.4-10.2) Total Bilirubin 0.4 mg/dl (0.2-1.3) Aspartate Amino Transf (AST/SGOT) 20 U/L (0-35) Alanine Aminotransferase (ALT/SGPT) 19 U/L (0-56) Alkaline Phosphatase 102 U/L (0-126) Total Protein 7.1 g/dl (6.3-8.2) Albumin 3.8 g/dl (3.5-5.0) Lipase 37 U/L (23-300) Urinalysis Test 03/01/18 13:36 Urine Color Yellow Urine Clarity Clear Urine pH 5.0 pH (4.8-9.5) Urine Specific [place] 1.020 Urine Protein Negative mg/dL (NEGATIVE) Urine Glucose (UA) Negative mg/dL (NEGATIVE) Urine Ketones Negative mg/dL (NEGATIVE) Urine Blood Small (NEGATIVE) Urine Nitrite Negative (NEGATIVE) Urine Bilirubin Negative (NEGATIVE) Urine Urobilinogen 2.0 mg/dL (0.2-1.9) Urine Leukocyte Esterase Negative (NEGATIVE) Urine RBC 2 /HPF (0-2/HPF) Urine WBC 1 /HPF (0-5/HPF) Urine Squamous Epithelial Cells Many /LPF (</=FEW) Urine Bacteria Negative /HPF (NONE-FEW) Urine Mucus Few /HPF (NONE-FEW) EKG/Imaging Imaging FACILITY: [facility] PATIENT NAME: Jacinto Santana : 1970 MR: [id number] V: [id number] EXAM DATE: ORDERING PHYSICIAN: JUANA MORROW TECHNOLOGIST: Location: [facility] Patient: Jacinto Santana : 1970 Visit/Account:[id number] Date of Sevice: 03/01/2018 EXAMINATION: CT abdomen and pelvis without IV contrast HISTORY: Right flank pain. TECHNIQUE: Axial CT images of the abdomen and pelvis were obtained without IV contrast, with coronal and sagittal 2D reconstructed images. One of the following dose optimization techniques was utilized in the performance of this exam: Automated exposure control; adjustment of the mA and/ or kV according to the patient's size; or use of an iterative reconstruction technique. Specific details can be referenced in the facility's radiology CT exam operational policy. COMPARISON: 12/01/2017. FINDINGS: Evaluation of the solid and viscus parenchymal organs is limited without the benefit of IV contrast. Kidney/ureters/bladder: The exam is negative for urinary calculi. Normal size and morphology of both kidneys. Both kidneys are negative for hydronephrosis. Normal course and caliber of the ureters. The urinary bladder is mildly distended and grossly unremarkable. Liver: Negative. Gallbladder and bile ducts: Cholecystectomy. No bile duct dilatation. Spleen: Negative. Pancreas: Negative. Adrenal glands: Negative. Bowel and peritoneum: The small bowel and colon are normal in caliber, without evidence of obstruction or any focal inflammatory process. The appendix is surgically absent. No free fluid or free intraperitoneal air. Pelvic structures: Hysterectomy. Lymph node assessment: Negative. Vessels: Negative. Musculoskeletal: No acute osseous findings. Surgical changes in the lumbar spine. Prior interbody fusion at L4-L5 and L5-S1 with posterior cherrie and pedicle screw fixation at L4-S1. Posterior laminectomy defects are present along the lower thoracic spine at T9 and T10. Spinal stimulator present with electrode at the T8 and T9 level. Body wall: Negative. Lung bases: Negative. IMPRESSION: 1. No urinary calculi or hydronephrosis. 2. No acute intra-abdominal findings by noncontrast CT imaging. 3. Prior cholecystectomy, appendectomy, hysterectomy. 4. Postsurgical changes along the thoracic and lumbar spine, with spinal stimulator device in place. Report Dictated By: Jeffrey Blake MD at 03/01/2018 2:15 PM Report E-Signed By: Jeffrey Blake MD at 03/01/2018 2:22 PM WSN:[id number] ED Course/Re-evaluation Clinical Indication for ER IV: IV Access ED Course 03/01/2018 1:44:30 pm patient with apparent renal colic. Plan will be IV pain medication with Toradol Benadryl and Reglan. We will check CBC electrolytes urinalysis perform a noncontrast CT of the abdomen and pelvis. The patient does have a treatment plan and recently received a month's supply of opiate pain medication on February 25. We will try to avoid narcotics if possible. Re-evaluation Patient's symptoms approximately 60% improved after current medications. We'll give a trial of dicyclomine. Decision to Disposition Date: Mar 01, 2018 Decision to Disposition Time: 14:38 Depart Departure Latest Vital Signs Vital Signs Date Time Temp Pulse Resp B/P (MAP) Pulse Ox O2 Delivery O2 Flow Rate FiO2 03/01/18 13:23 98.1 59 18 139/94 97 Room Air Impression: Primary Impression: Flank pain, acute Condition: Improved Disposition: HOME OR SELF-CARE Referrals: MARY LIZAMA DO (PCP) 2 Days If symptoms worsen or persist New Scripts Ondansetron (ZOFRAN ODT) 4 Mg Tab.rapdis 4 MG PO Q8H for Nausea, #15 TAB.JIMMIE 0 Refills Prov: JUANA MORROW MD 03/01/18 Dicyclomine Hcl (DICYCLOMINE HCL) 20 Mg Tablet 20 MG PO QID for cramping, #30 TAB 0 Refills Prov: JUANA MORROW MD 03/01/18 Departure Forms: ER Transition Record, Medications Reconciliation, Patient Portal Information Patient Instructions: Flank Pain (ED) JUANA MORROW MD Mar 01, 2018 12:42
[2018-03-01] MEDS ORDERED: METOCLOPRAMIDE 10 MG/2 ML SDV IVP ONE (13:40)
[2018-03-01] MEDS ORDERED: diphenhydrAMINE 50 MG/ML VIAL IVP ONE (13:40)
[2018-03-01] MEDS ORDERED: NS(*) 0.9% 500 ML BAG 500 ML IV ONE (13:40)
[2018-03-01] MEDS ORDERED: KETOROLAC 30 MG/ML VIAL IVP ONE (13:40)
[2018-03-01 13:58] LABS: PLATELET COUNT, AUTOMATED 245 K/uL (150-450)
[2018-03-01] MEDS ORDERED: DICYCLOMINE HCL 10 MG CAP PO ONE (14:15)
--- NOTE | 2018-03-01 14:25 | RADIOLOGY IMAGING REPORT ---
FACILITY: [facility] - [place] PATIENT NAME: Jacinto Santana : 1970 MR: [id number] V: [id number] EXAM DATE: ORDERING PHYSICIAN: JUANA MORROW TECHNOLOGIST: Location: [facility] [place] Patient: Jacinto Santana : 1970 Visit/Account:[id number] Date of Sevice: 03/01/2018 EXAMINATION: CT abdomen and pelvis without IV contrast HISTORY: Right flank pain. TECHNIQUE: Axial CT images of the abdomen and pelvis were obtained without IV contrast, with mcgee l and sagittal 2D reconstructed images. One of the following dose optimization techniques was utilized in the performance of this exam: Autom ated exposure control; adjustment of the mA and/or kV according to the patient's size; or use of an i terative reconstruction technique. Specific details can be referenced in the facility's radiology C T exam operational policy. COMPARISON: 12/01/2017. FINDINGS: Evaluation of the solid and viscus parenchymal organs is limited without the benefit of IV contrast. Kidney/ureters/bladder: The exam is negative for urinary calculi. Normal size and morphology of both kidneys. Both kidneys are negative for hydronephrosis. Normal course and caliber of the ureters. The urinary bladder is mildly distended and grossly unremarkable. Liver: Negative. Gallbladder and bile ducts: Cholecystectomy. No bile duct dilatation. Spleen: Negative. Pancreas: Negative. Adrenal glands: Negative. Bowel and peritoneum: The small bowel and colon are normal in caliber, without evidence of obstructi on or any focal inflammatory process. The appendix is surgically absent. No free fluid or free intrap eritoneal air. Pelvic structures: Hysterectomy. Lymph node assessment: Negative. Vessels: Negative. Musculoskeletal: No acute osseous findings. Surgical changes in the lumbar spine. Prior interbody f usion at L4-L5 and L5-S1 with posterior cherrie and pedicle screw fixation at L4-S1. Posterior laminectom y defects are present along the lower thoracic spine at T9 and T10. Spinal stimulator present with el ectrode at the T8 and T9 level. Body wall: Negative. Lung bases: Negative. IMPRESSION: 1. No urinary calculi or hydronephrosis. 2. No acute intra-abdominal findings by noncontrast CT imaging. 3. Prior cholecystectomy, appendectomy, hysterectomy. 4. Postsurgical changes along the thoracic and lumbar spine, with spinal stimulator device in place. Report Dictated By: Jeffrey Blake MD at 03/01/2018 2:15 PM Report E-Signed By: Jeffrey Blake MD at 03/01/2018 2:22 PM WSN:[id number]
[2018-03-01 14:30] VITALS: BP 116/79
[2018-03-01] MEDS ORDERED: DICY20TA70 PO (14:36)
[2018-03-01] MEDS ORDERED: ONDA4TAB PO (14:37)
== END 2018-03-01 14:59 | disposition home or self-care (01) ==
LOC: ER 13:23
DX: R10.31 Right lower quadrant pain (principal)
CPT/HCPCS: 74176; 81001; 83690; 85025; 96361; 96374; 96375; 99284; J1200; J1885; J2765; J7040; 82040; 82247; 82310; 82374; 82435; 82565; 82947; 84075; 84132; 84155; 84295; 84450; 84460; 84520

== ENCOUNTER → 2018-05-13 | Emergency (ER) | payer MEDICAID ==
[~2018-05-13] MED LIST changes: +AMOX500T10 PO; +DIPHTH/TETANUS/ACEL. PERTUSSIS IM ONLY ONE; -TRAZ-163 PO; +TRAZ100T31 PO
--- NOTE | 2018-05-13 11:45 | ER Report ---
History and Physical Time Seen By MD: 11:45 Hx. of Stated Complaint: pt states cut r hand while washing a glass 30 min ago HPI/ROS CHIEF COMPLAINT: Laceration HISTORY OF PRESENT ILLNESS: 48-year-old female patient presents to emergency room with complaint of laceration between her right fourth and fifth fingers. Patient states that she was washing a glass when it broke her hand. She states that it did Between her fourth and fifth fingers. Patient states that she did apply pressure to it. She does have some concerns that she may have some glass pieces in her hand. Patient denies having any numbness tingling. Patient is able to move her fingers any difficulties. Patient states she has not taken any medication for this. She is unsure of her last tetanus shot. Allergies: Coded Allergies: Sulfa (Sulfonamide Antibiotics) (Verified Allergy, Severe, ANAPHYLAXIS, 05/13/18) cephalexin (Verified Allergy, Severe, ANAPHYLAXIS, 05/13/18) ciprofloxacin (Verified Allergy, Severe, SWELLING IN MOUTH, ITCHING, PIN AND NEEDLES IN MOUTH, 05/13/18) sulfamethoxazole (Verified Allergy, Severe, SWELLING OF LIPS AND GUMS, 05/13/18) trimethoprim (Verified Allergy, Severe, SWELLING OF LIPS AND GUMS, 05/13/18) meperidine (Verified Allergy, Intermediate, RASH, ITCHING, 05/13/18) aspirin (Verified Allergy, Mild, 05/13/18) naproxen (Verified Allergy, Mild, 05/13/18) dexamethasone (Verified Allergy, Unknown, 05/13/18) Home Meds Active Scripts Amoxicillin 500 Mg Tab (AMOXICILLIN 500 MG TAB) 500 Mg Tablet, 1 TAB PO Q8H, #15 TAB Prov:ABBEY PADGETT 05/13/18 Dicyclomine Hcl (DICYCLOMINE HCL) 20 Mg Tablet, 20 MG PO QID for cramping, #30 TAB 0 Refills Prov:JUANA MORROW MD 03/01/18 Ondansetron (ZOFRAN ODT) 4 Mg Tab.rapdis, 4 MG PO Q8H PRN for NAUSEA, #20 TAB.JIMMIE 0 Refills Prov:JUANA MORROW MD 12/01/17 Reported Medications Lubiprostone (AMITIZA) 8 Mcg Capsule 12/01/17 Paroxetine Hcl (PAXIL) 20 Mg Tablet, 75 MG PO QDAY, TAB 4/3/18 Pantoprazole Sodium (PANTOPRAZOLE SODIUM) 40 Mg Tablet.dr, 40 MG PO QDAY, TAB.SR 02/16/17 Oxycodone Hcl (OXYCONTIN) 15 Mg Tab.er.12h, 20 MG PO QDAY 02/16/17 Hydrocodone Bit/Acetaminophen (NORCO 7.5-325 TABLET) 1 Each Tablet, 1 EACH PO 08/27/16 Polyethylene Glycol 3350 (MIRALAX) Unknown Strength Powd.pack, 17 GM PO QODAY, PKT 08/15/16 Discontinued Scripts Ondansetron (ZOFRAN ODT) 4 Mg Tab.rapdis, 4 MG PO Q8H for Nausea, #15 TAB.JIMMIE 0 Refills Prov:JUANA MORROW MD 03/01/18 Past Medical/Surgical History Patient has a past medical history of migraines, leaky valve that her heart, [place], irregular heartbeat, hyperlipidemia, sinus drainage, COPD, reflux, kidney stones, back pain, HSV, depression, PTSD, anxiety. Patient has a surgical history of a spinal fusion, hysterectomy, ureteral stents, cholecystectomy, appendectomy, cystoscopy, spinal cord simulator place. Patient has a family medical history of cancer. Reviewed Nurses Notes: Yes Hx Smoking: Yes (1/2 PPD 5 YEARS) Smoking Status: Current: Every Day Smoker Exposure to Second Hand Smoke?: Yes Hx Substance Use Disorder: No Hx Alcohol Use: No Constitutional Vital Sign - Last 24 Hours 05/13/18 05/13/18 11:37 12:45 Temp 98.4 Pulse 57 Resp 20 B/P (MAP) 119/87 120/74 (89) Pulse Ox 92 O2 Delivery Room Air Physical Exam General appearance: Alert no distress. Respiratory: Chest is non tender, lungs are clear to auscultation. Cardiac: Regular rate and rhythm. Skin: Patient does have a 2 cm laceration to the webbing between the right fourth and fifth fingers. Patient has good strength with abduction and abduction. No numbness tingling noted. No retained foreign bodies noted. DIFFERENTIAL DIAGNOSIS: After history and physical exam differential diagnosis was considered for laceration. Medical Decision Making EKG/Imaging Imaging Technique: HAND COMPLETE RIGHT HISTORY: laceration, glass pieces? Comparison studies: Right hand radiographs May 19, 2011 FINDINGS: There is no acute fracture. The alignment of the right hand is maintained. Bandaging is noted between the right fourth and fifth digits. No radiodense foreign body. IMPRESSION: 1. No radiodense foreign body. No acute osseous process. Report Dictated By: Roberto Trujillo DO at 05/13/2018 12:18 PM Report E-Signed By: Roberto Trujillo DO at 05/13/2018 12:20 PM ED Course/Re-evaluation ED Course Patient was admitted to exam room, history and physical were obtained. Initial diagnoses were considered. Examination patient does have a similar laceration be tween the fourth and fifth fingers of the right hand. There is no obvious foreign bodies noted. Patient had good strength with abduction and abduction of her fingers. X-rays done of the hand which showed no radiopaque foreign bodies. I discussed the findings with patient. We did go ahead and anesthetize, cleaned and repaired the wound is described below. We'll go ahead and discharge patient home at this time. She is to limit activity by pain. We will go ahead and put her on a few days of antibiotics to prevent any infection. She is follow-up with her primary care provider in 7-10 days to have sutures removed. I discussed this with the patient who verbalized understanding and agreement with plan. Procedure: Laceration repair. Verbal consent was obtained from the patient. The 2 cm laceration on the right hand between the fourth and fifth fingers was anesthetized in the usual fashion. The wound was scrubbed, draped and explored to its base with a gloved finger. There were no deep structures involved. No tendon injury was identified. The wound was repaired with 5 simple interrupted sutures using 5-0 Prolene material. The wound repair was simple. The procedure was performed by myself. Decision to Disposition Date: May 13, 2018 Decision to Disposition Time: 12:15 Depart Departure Latest Vital Signs Vital Signs Date Time Temp Pulse Resp B/P (MAP) Pulse Ox O2 Delivery O2 Flow Rate FiO2 05/13/18 12:45 120/74 (89) 05/13/18 11:37 98.4 57 20 92 Room Air Impression: Primary Impression: Hand laceration Condition: Improved Disposition: HOME OR SELF-CARE Referrals: MARY LIZAMA DO (PCP) New Scripts Amoxicillin 500 Mg Tab (AMOXICILLIN 500 MG TAB) 500 Mg Tablet 1 TAB PO Q8H, #15 TAB Prov: ABBEY PADGETT 05/13/18 Patient Instructions: Hand Laceration Additional Instructions: Keep wound dry for 48 hours. Follow up with your primary care provider in the next 7-10 days to have sutures removed. Monitor for signs of infection; redness, swelling, heat, discharge, increasing pain or red streaking. Take Tylenol or Ibuprofen as needed for pain. Return to the ER with any concerns. You may change dressing as needed. Problem Qualifiers Primary Impression: Hand laceration Encounter type: initial encounter Foreign body presence: without foreign body Laterality: right Qualified Codes: S61.411A - Laceration without foreign body of right hand, initial encounter ABBEY PADGETT May 13, 2018 11:45
--- NOTE | 2018-05-13 12:24 | RADIOLOGY IMAGING REPORT ---
FACILITY: [facility] - [place] PATIENT NAME: Jacinto Santana : 1970 MR: [id number] V: [id number] EXAM DATE: ORDERING PHYSICIAN: ABBEY PADGETT TECHNOLOGIST: Location: [facility] Patient: Jacinto Santana : 1970 Visit/Account:[id number] Date of Sevice: 05/13/2018 Technique: HAND COMPLETE RIGHT HISTORY: laceration, glass pieces? Comparison studies: Right hand radiographs May 19, 2011 FINDINGS: There is no acute fracture. The alignment of the right hand is maintained. Bandaging is n oted between the right fourth and fifth digits. No radiodense foreign body. IMPRESSION: 1. No radiodense foreign body. No acute osseous process. Report Dictated By: Roberto Trujillo DO at 05/13/2018 12:18 PM Report E-Signed By: Roberto Trujillo DO at 05/13/2018 12:20 PM WSN:[email or web address]
[2018-05-13 12:45] VITALS: BP 120/74
== END ==
LOC: ER 11:46
DX: S61.411A Laceration without foreign body of right hand, initial encounter (principal)
CPT/HCPCS: 90471; 90715; 99283

== ENCOUNTER → 2018-07-01 | Outpatient (CLI) | payer MEDICAID ==
[~2018-07-01] MED LIST changes: -DIPHTH/TETANUS/ACEL. PERTUSSIS IM ONLY ONE; -HYDR-4308 PO; +HYDR-654 PO
--- NOTE | 2018-07-01 11:05 | RADIOLOGY IMAGING REPORT ---
FACILITY: [facility] - [place] PATIENT NAME: Jacinto Santana : 1970 MR: [id number] V: [id number] EXAM DATE: ORDERING PHYSICIAN: MARY LIZAMA TECHNOLOGIST: Location: [facility] Patient: Jacinto Santana : 1970 Visit/Account:[id number] Date of Sevice: 07/01/2018 KNEE 3 VIEW RIGHT Indication: Swelling on the lateral side of the right knee. Pain with walking and flexing. Comparison: None available Findings: 3 views right knee were obtained. No evidence of fracture, dislocation, or acute osseous abnormality of the right knee. Minimal lateral tibial femoral compartment joint space loss. Mild lateral marginal osteophyte. Mini mal spurring of the tibial spines. Small quadriceps insertional enthesophyte. No evidence of joint effusion. There is no focal soft tissue abnormality. No evidence of radiopaque foreign body. IMPRESSION: 1.No acute osseous abnormality of the right knee. 2. Mild degenerative changes, greatest within the lateral tibiofemoral compartment. Report Dictated By: Paulino Johnson MD at 07/01/2018 10:59 AM Report E-Signed By: Paulino Johnson MD at 07/01/2018 11:01 AM WSN:[email or web address]
== END ==
LOC: RAD 10:21
PROVIDERS: ATTEND Family Medicine
DX: M25.561 Pain in right knee (principal)

== ENCOUNTER 2018-12-06 11:50 | Emergency (ER) | payer MEDICAID ==
[~2018-12-06 11:50] MED LIST changes: -LUBI8CAP; +LUBI8CAP PO
--- NOTE | 2018-12-06 12:01 | ER Report ---
History and Physical Time Seen By MD: 12:00 Hx. of Stated Complaint: PAIN IN ARMS AND NECK, CHEST PAINS/HEAVINESS, "NOT FEELING WELL", LIGHTHEADED, DIZZY, HBP, WOMACK GOING ON FOR "A WHILE" BUT WORSE SINCE YESTERDAY HPI/ROS CHIEF COMPLAINT: Chest pressure, left arm pain, discomfort under bilateral breasts. HISTORY OF PRESENT ILLNESS: 48-year-old female patient presents to emergency room with complaint of chest pressure, left arm pain, discomfort under bilateral breasts. Patient states this been going on for the past couple months but has been worse since yesterday. Patient denies any fevers or chills. She states she' s had some shortness of breath, but states that that is worse when she is feeling stressed. Patient states that she's not had any worsening of her symptoms with activity. She denies any vomiting or diarrhea but states she has been nauseated. Patient states she is not taking any medication for this. She states that she noticed that her blood pressure was elevated, 150/101 when she got up this morning. She states yesterday it was really low stating that it was 58/50-something. Patient states she is follow-up with her primary care provider today and was referred to the emergency room as her unable to check a troponin. REVIEW OF SYSTEMS: Respiratory: No cough, no dyspnea. Cardiovascular: As noted above Gastrointestinal: No vomiting, no abdominal pain. Musculoskeletal: No back pain. Allergies: Coded Allergies: Sulfa (Sulfonamide Antibiotics) (Verified Allergy, Severe, ANAPHYLAXIS, 12/06/18) cephalexin (Verified Allergy, Severe, ANAPHYLAXIS, 12/06/18) ciprofloxacin (Verified Allergy, Severe, SWELLING IN MOUTH, ITCHING, PIN AND NEEDLES IN MOUTH, 12/06/18) sulfamethoxazole (Verified Allergy, Severe, SWELLING OF LIPS AND GUMS, 12/06/18) trimethoprim (Verified Allergy, Severe, SWELLING OF LIPS AND GUMS, 12/06/18) meperidine (Verified Allergy, Intermediate, RASH, ITCHING, 12/06/18) aspirin (Verified Allergy, Mild, 12/06/18) naproxen (Verified Allergy, Mild, 12/06/18) dexamethasone (Verified Allergy, Unknown, 12/06/18) Home Meds Active Scripts Hydroxyzine Hcl (HYDROXYZINE HCL) 25 Mg Tablet, 25 MG PO Q6H PRN for ANXIETY, #30 TAB Prov:ABBEY PADGETT ARCHAEOLOGIST 12/06/18 Dicyclomine Hcl (DICYCLOMINE HCL) 20 Mg Tablet, 20 MG PO QID for cramping, #30 TAB 0 Refills Prov:JUANA MORORW MD 03/01/18 Reported Medications Black Cohosh (BLACK COHOSH) 540 Mg Capsule, 540 MG PO DAILY, CAPSULE 12/06/18 Misoprostol (MISOPROSTOL) 100 Mcg Tab, 100 MCG PO QID, TAB 12/06/18 Lubiprostone (AMITIZA) 8 Mcg Capsule, 8 MCG PO BID 12/01/17 Paroxetine Hcl (PAXIL) 20 Mg Tablet, 75 MG PO QDAY, TAB 12/01/17 Oxycodone Hcl (OXYCONTIN) 15 Mg Tab.er.12h, 20 MG PO BID 02/16/17 Hydrocodone Bit/Acetaminophen (NORCO 7.5-325 TABLET) 1 Each Tablet, 1 EACH PO QID 08/27/16 Discontinued Reported Medications Pantoprazole Sodium (PANTOPRAZOLE SODIUM) 40 Mg Tablet.dr, 40 MG PO QDAY, TAB.SR 02/16/17 Polyethylene Glycol 3350 (MIRALAX) Unknown Strength Powd.pack, 17 GM PO QODAY, PKT 08/15/16 Discontinued Scripts Amoxicillin 500 Mg Tab (AMOXICILLIN 500 MG TAB) 500 Mg Tablet, 1 TAB PO Q8H, #15 TAB Prov:ABBEY PADGETT [facility] 05/13/18 Ondansetron (ZOFRAN ODT) 4 Mg Tab.rapdis, 4 MG PO Q8H PRN for NAUSEA, #20 TAB.JIMMIE 0 Refills Prov:JUANA MORROW MD 12/01/17 Past Medical/Surgical History Patient has a past medical history of migraines, leaky valves, [place], irregular heartbeat, sinus drainage, COPD, chronic kidney stones, back pain, partial dentures, HSV, depression, PTSD, anxiety. Patient has a surgical history of removal of lymph node, spinal fusion, right knee surgery, meniscus repair, hysterectomy, ureteral stents, cholecystectomy, appendectomy, nerve stimulator placed. Patient has a family medical history of cancer. Reviewed Nurses Notes: Yes Hx Smoking: Yes (1/2 PPD 5 YEARS) Smoking Status: Current: Every Day Smoker Exposure to Second Hand Smoke?: Yes Hx Substance Use Disorder: No Hx Alcohol Use: No Constitutional Vital Sign - Last 24 Hours 12/06/18 12/06/18 12/06/18 12/06/18 11:54 12:00 12:15 12:30 Pulse 63 62 53 52 Resp 14 10 11 8 B/P (MAP) 140/90 129/79 (96) 121/75 (90) Pulse Ox 95 93 92 92 O2 Delivery Room Air 12/06/18 12/06/18 12:45 13:00 Pulse 55 55 Resp 11 11 B/P (MAP) 116/71 (86) Pulse Ox 88 89 Physical Exam General Appearance: The patient is alert, has no immediate need for airway protection and no current signs of toxicity. Respiratory: Chest is non tender, lungs are clear to auscultation. Cardiac: regular rate and rhythm Gastrointestinal: Abdomen is soft and non tender, no masses, bowel sounds normal. Musculoskeletal: Neck: Neck is supple and non tender. Extremities have full range of motion and are non tender. Skin: No rashes or lesions. DIFFERENTIAL DIAGNOSIS: After history and physical exam differential diagnosis was considered for chest pain including but not limited to myocardial ischemia, pericarditis pulmonary embolus, chest wall pain, pleural inflammation and pulmonary infectious causes. Medical Decision Making Data Points Result Diagram: 12/06/18 1204 12/06/18 1204 Laboratory Hematology Test 12/06/18 12:04 Red Blood Count 4.94 M/uL (4.17-5.56) Mean Corpuscular Volume 93.4 fL (80.0-96.0) Mean Corpuscular Hemoglobin 31.2 pg (26.0-33.0) Mean Corpuscular Hemoglobin Concent 33.4 g/dL (32.0-36.0) Red Cell Distribution Width 13.7 % (11.5-14.5) Mean Platelet Volume 8.2 fL (7.2-11.1) Neutrophils (%) (Auto) 57.4 % (39.4-72.5) Lymphocytes (%) (Auto) 35.4 % (17.6-49.6) Monocytes (%) (Auto) 5.1 % (4.1-12.4) Eosinophils (%) (Auto) 0.9 % (0.4-6.7) Basophils (%) (Auto) 1.2 % (0.3-1.4) Nucleated RBC Relative Count (auto) 0.0 /100WBC Neutrophils # (Auto) 5.4 K/uL (2.0-7.4) Lymphocytes # (Auto) 3.3 K/uL (1.3-3.6) Monocytes # (Auto) 0.5 K/uL (0.3-1.0) Eosinophils # (Auto) 0.1 K/uL (0.0-0.5) Basophils # (Auto) 0.1 K/uL (0.0-0.1) Nucleated RBC Absolute Count (auto) 0.00 K/uL Sodium Level 140 mmol/L (137-145) Potassium Level 3.9 mmol/L (3.5-5.0) Chloride Level 104 mmol/L (98-107) Carbon Dioxide Level 28 mmol/L (22-31) Blood Urea Nitrogen 10 mg/dl (7-18) Creatinine 0.80 mg/dl (0.52-1.04) Glomerular Filtration Rate Calc > 60.0 Random Glucose 78 mg/dl (75-110) Calcium Level 9.0 mg/dl (8.4-10.2) Total Bilirubin 0.2 mg/dl (0.2-1.3) Aspartate Amino Transf (AST/SGOT) 18 U/L (0-35) Alanine Aminotransferase (ALT/SGPT) 17 U/L (0-56) Alkaline Phosphatase 90 U/L (0-126) Troponin I < 0.012 ng/ml B-Type Natriuretic Peptide 13 pg/ml (0-100) Total Protein 7.5 g/dl (6.3-8.2) Albumin 4.3 g/dl (3.5-5.0) Chemistry Test 12/06/18 12:04 White Blood Count 9.5 k/uL (4.5-11.0) Red Blood Count 4.94 M/uL (4.17-5.56) Hemoglobin 15.4 g/dL (12.0-16.0) Hematocrit 46.1 % (34.0-47.0) Mean Corpuscular Volume 93.4 fL (80.0-96.0) Mean Corpuscular Hemoglobin 31.2 pg (26.0-33.0) Mean Corpuscular Hemoglobin Concent 33.4 g/dL (32.0-36.0) Red Cell Distribution Width 13.7 % (11.5-14.5) Platelet Count 275 K/uL (150-450) Mean Platelet Volume 8.2 fL (7.2-11.1) Neutrophils (%) (Auto) 57.4 % (39.4-72.5) Lymphocytes (%) (Auto) 35.4 % (17.6-49.6) Monocytes (%) (Auto) 5.1 % (4.1-12.4) Eosinophils (%) (Auto) 0.9 % (0.4-6.7) Basophils (%) (Auto) 1.2 % (0.3-1.4) Nucleated RBC Relative Count (auto) 0.0 /100WBC Neutrophils # (Auto) 5.4 K/uL (2.0-7.4) Lymphocytes # (Auto) 3.3 K/uL (1.3-3.6) Monocytes # (Auto) 0.5 K/uL (0.3-1.0) Eosinophils # (Auto) 0.1 K/uL (0.0-0.5) Basophils # (Auto) 0.1 K/uL (0.0-0.1) Nucleated RBC Absolute Count (auto) 0.00 K/uL Glomerular Filtration Rate Calc > 60.0 Calcium Level 9.0 mg/dl (8.4-10.2) Total Bilirubin 0.2 mg/dl (0.2-1.3) Aspartate Amino Transf (AST/SGOT) 18 U/L (0-35) Alanine Aminotransferase (ALT/SGPT) 17 U/L (0-56) Alkaline Phosphatase 90 U/L (0-126) Troponin I < 0.012 ng/ml B-Type Natriuretic Peptide 13 pg/ml (0-100) Total Protein 7.5 g/dl (6.3-8.2) Albumin 4.3 g/dl (3.5-5.0) EKG/Imaging EKG Interpretation 12 lead EKG: Rhythm: Sinus bradycardia with ventricular rate of 53 bpm Comstock: normal QRS: normal ST segments: normal Imaging 2 VIEWS CHEST INDICATION: Chest pain. COMPARISON: Examination of the chest April 22, 2009 FINDINGS: Stimulator leads overlie the thoracic spine. Heart is within normal limits. Lungs are clear. Multilevel spondylosis without acute bony finding. There is no focal infiltrate or lobar consolidation. There is no pneumothorax or pleural effusion. IMPRESSION: 1. No acute cardiopulmonary process. Report Dictated By: Andrea Ramachandran MD at 12/06/2018 12:29 PM Report E-Signed By: Andrea Ramachandran MD at 12/06/2018 12:30 PM ED Course/Re-evaluation ED Course Patient is admitted and examined, history and physical were obtained. Di fferential diagnoses were considered. On examination lungs are clear, heart regular, abdomen soft nontender. Patient did have slightly elevated blood pressure on arrival. The blood pressure came down spontaneously while she was here. Lab results were unremarkable. Chest x-ray was negative. I discussed the findings with the patient. We will go ahead and discharge her home this time. She is follow-up with her primary care provider later this week. She is return to emergency room if condition worsens. I would like her to continue with her normal medications. Patient is return to the emergency room if condition worsens. Patient verbalized understanding and agreement with plan. Decision to Disposition Date: Dec 06, 2018 Decision to Disposition Time: 13:11 Depart Departure Latest Vital Signs Vital Signs Date Time Temp Pulse Resp B/P (MAP) Pulse Ox O2 Delivery O2 Flow Rate FiO2 12/06/18 13:00 55 11 116/71 (86) 89 12/06/18 11:54 Room Air Impression: Primary Impression: Chest pain Condition: Improved Disposition: HOME OR SELF-CARE Referrals: MARY LIZAMA DO (PCP) New Scripts Hydroxyzine Hcl (HYDROXYZINE HCL) 25 Mg Tablet 25 MG PO Q6H PRN for ANXIETY, #30 TAB Prov: ABBEY PADGETT 12/06/18 Patient Instructions: Chest Pain (ED) Additional Instructions: Increase fluid intake. Get plenty of rest. Follow up with your primary care provider in the next week. Return to the ER if condition worsens. Continue with your normal medications. Try to use your relaxation techniques to help control your stress. Problem Qualifiers Primary Impression: Chest pain Chest pain type: other chest pain Qualified Codes: R07.89 - Other chest pain ABBEY PADGETT Dec 06, 2018 12:01
[2018-12-06] MEDS ORDERED: NS(*) 0.9% 1000 ML BAG 1,000 ML IV ONE (12:10)
[2018-12-06] MEDS ORDERED: BLAC540C PO (12:12)
[2018-12-06] MEDS ORDERED: [UNRECOGNIZED DRUG - CODE] PO (12:12)
[2018-12-06 12:16] LABS: PLATELET COUNT, AUTOMATED 275 K/uL (150-450)
--- NOTE | 2018-12-06 12:34 | RADIOLOGY IMAGING REPORT ---
FACILITY: [facility] - [place] PATIENT NAME: Jacinto Santana : 1970 MR: [id number] V: [id number] EXAM DATE: ORDERING PHYSICIAN: ABBEY PADGETT TECHNOLOGIST: Location: [facility] Patient: Jacinto Santana : 1970 Visit/Account:[id number] Date of Sevice: 12/06/2018 2 VIEWS CHEST INDICATION: Chest pain. COMPARISON: Examination of the chest April 22, 2009 FINDINGS: Stimulator leads overlie the thoracic spine. Heart is within normal limits. Lungs are clear. Multi level spondylosis without acute bony finding. There is no focal infiltrate or lobar consolidation. There is no pneumothorax or pleural effusion. IMPRESSION: 1. No acute cardiopulmonary process. Report Dictated By: Andrea Ramachandran MD at 12/06/2018 12:29 PM Report E-Signed By: Andrea Ramachandran MD at 12/06/2018 12:30 PM WSN:[email or web address]
--- NOTE | 2018-12-06 12:35 | EKG ---
FACILITY: [facility] - [place] PATIENT NAME: DELMY CARSON : [id number] MR: [id number] V: [id number] EXAM DATE: ORDERING PHYSICIAN: ABBEY PADGETT TECHNOLOGIST: VERONICA Fitzgerald Reason : CARDIAC Blood Pressure : / mmHG Vent. Rate : 053 BPM Atrial Rate : 053 BPM P-R Int : 136 ms QRS Dur : 078 ms QT Int : 420 ms P-R-T Axes : 031 039 033 degrees QTc Int : 394 ms Sinus bradycardia Decreased R wave progression anteriorly Artifact in limb leads No acute appearing findings Confirmed by JACOBO MORIN ([id number] on 12/06/2018 4:54:05 PM Referred By: DAYRON Confirmed By:JACOBO MORIN
[2018-12-06 13:00] VITALS: BP 116/71
[2018-12-06] MEDS ORDERED: HYDR-4225 PO (13:13)
== END 2018-12-06 13:18 | disposition home or self-care (01) ==
LOC: ER 12:14
DX: R07.89 Other chest pain (principal); F17.210 Nicotine dependence, cigarettes, uncomplicated
CPT/HCPCS: 71046; 83880; 84484; 85025; 93005; 96360; 99284; J7030; 82040; 82247; 82310; 82374; 82435; 82565; 82947; 84075; 84132; 84155; 84295; 84450; 84460; 84520

== ENCOUNTER → 2019-03-22 | Outpatient (CLI) | payer MEDICAID ==
[~2019-03-22] MED LIST changes: +BLAC540C PO; +HYDR-4225 PO; +[UNRECOGNIZED DRUG - CODE] PO
== END ==
LOC: SPU 12:22
DX: N30.01 Acute cystitis with hematuria (principal)
CPT/HCPCS: 51701; 81001; 87088

== ENCOUNTER 2019-04-04 02:19 | Day surgery (SDC) | payer MEDICAID ==
[~2019-04-04] VITALS: Ht 165.1 cm; Wt 87.1 kg
[2019-04-04] MEDS ORDERED: NS 0.9% IVPB ONE (10:15)
[2019-04-04] MEDS ORDERED: GENTAMICIN IVPB ONE (10:15)
[2019-04-04] MEDS ORDERED: NORMOSOL R SOLN(*) 1000 ML BAG 1,000 ML IV PRN (10:15)
[2019-04-04] MEDS ORDERED: LIDOCAINE/SOD BICARB 8.4% SYR ID ONE (10:15)
[2019-04-04] MEDS ORDERED: MIDAZOLAM 2 MG/2 ML VIAL IVP PRN (10:15)
[2019-04-04 13:30] VITALS: BP 128/79
[2019-04-04] MEDS ORDERED: ONDANSETRON 4 MG/2 ML VIAL ONE (14:53)
[2019-04-04] MEDS ORDERED: PROPOFOL EMUL(*) 10MG/ML 20 ML 60 ML ONE (14:53)
[2019-04-04] MEDS ORDERED: LIDOCAINE MPF 1% 5 ML VIAL ONE (14:53)
[2019-04-04] MEDS ORDERED: DEXAMETHASONE SOD 4 MG/ML VIAL ONE (14:53)
[2019-04-04] MEDS ORDERED: METOCLOPRAMIDE 10 MG/2 ML SDV ONE (14:58)
[2019-04-04] MEDS ORDERED: fentaNYL CITR 100 MCG/2 ML AMP ONE ×2 (15:00→16:52)
[2019-04-04] MEDS ORDERED: KETOROLAC 30 MG/ML VIAL ONE (18:03)
[2019-04-04] MEDS ORDERED: FAMO20TA28 PO (18:19)
[2019-04-04] MEDS ORDERED: PHEN200T32 PO (18:20)
[2019-04-04] MEDS ORDERED: PROLOPRIM PO (18:22)
[2019-04-04] MEDS ORDERED: IBUP-297 PO (18:23)
[2019-04-04] MEDS ORDERED: ACET-3017 PO (18:24)
--- NOTE | 2019-04-05 18:49 | OPERATIVE REPORT 1 ---
EVENT DATE: April 04, 2019 SURGEON: Alen Gauthier MD ANESTHESIOLOGIST: Saud Grover MD ANESTHESIA: General. PREOPERATIVE DIAGNOSES 1. Chronic urgency and frequency of urination, etiology ? 2. Chronic tenesmus, etiology ? 3. Possible irritable bladder syndrome. POSTOPERATIVE DIAGNOSES 1. Chronic urgency and frequency of urination, etiology ? 2. Chronic tenesmus, etiology ? 3. Possible irritable bladder syndrome. PROCEDURES PERFORMED 1. Cystourethroscopy. 2. Hydrodistention of the bladder. 3. Urethral dilation. DESCRIPTION OF PROCEDURE Under general anesthetic, the patient was prepped and draped in the extended lithotomy position. The 21 panendoscope admitted through the urethra to the bladder. The urethra showed a mild inflammatory urethritis. He had a mild pseudomembranous trigonitis. Bladder showed 2 to 3+ trabeculation. Trigone and ureteral orifices were normal other than possible lesions. Urine was collected for urinalysis, culture, and sensitivity at the time of introduction of the urethroscope. The bladder was filled under gravity flow. It was measured to a total of 500 mL. On that amount of filling, there was some leakage of fluid around the panendoscope. Bladder was refilled under gravity flow with hydrodistention. It was measured to a total of 1050 mL. The scope was reintroduced, and the bladder was inspected. There were diffuse glomerulations after the gravity filling as well as the hydrodistention. The diffuse glomerulations were more extensive, and there was more bleeding following the hydrodistention. Bladder appeared to be intact. Bladder was drained. The urethra was dilated to 34-Kinyarwanda. Minimal bleeding followed the dilation. Pre-evaluation, the urethra was palpated, and no purulent material was expressed from the urethra. No masses were palpable. Hydrocortisone cream was left per urethra. Patient tolerated the procedure satisfactorily and returned to the recovery room in satisfactory condition. This is a 49-year-old white female complaining of chronic urgency and frequency of urination, also with complaints of some bladder discomfort and tenesmus. Patient was treated in the past for same and found to have findings consistent with probable irritable bladder syndrome. Recent office evaluation showed microscopic hematuria, and then her urine culture showed no growth. That was on a catheterized specimen. Patient was given a trial of antispasmodic, Detrol, and that failed to give any significant relief. Patient requested repeat evaluation and treatment. That has been accomplished. See operative note for details. Patient will be ready for discharge home when alert and functional. Force fluids, 2 L per day. Activities are as tolerated. She was given a dose of Toradol in the recovery room. Patient will be discharged on Proloprim, Pepcid, Motrin, Pyridium, and Tylenol No. 3 therapy in addition to her usual medications. MTDD
== END 2019-04-04 18:50 | disposition home or self-care (01) ==
LOC: OR 02:19
DX: R39.15 Urgency of urination (principal); R35.0 Frequency of micturition; R19.8 Other specified symptoms and signs involving the digestive system and abdomen
CPT/HCPCS: 52281; 81001; 87088; A4338; J1580; J1885; J2250; J2405; J2704; J2765; J3010; J7050; J1100; J2001